=== PATIENT | female | born 1995 | race Caucasian/White ===

== ENCOUNTER 2018-01-08 19:12 | Emergency (ER) | payer BC ==
[2018-01-08 19:54] VITALS: BP 124/63
--- NOTE | 2018-01-09 09:55 | UC ---
- Progress Note Progress Note: Pt LWBS no imaging ordered Discharge - Sign-Out/Discharge Documenting (check all that apply): Post-Discharge Follow Up All imaging exams completed and their final reports reviewed: No Studies - Discharge Plan Disposition: LEFT WITHOUT BEING SEEN Referrals: No Primary Care Phys,NOPCP [Primary Care Provider] - - Billing Disposition and Condition Disposition: Left Without Being Seen
== END 2018-01-08 20:06 | disposition left against medical advice (07) ==
LOC: UCEAST 19:12
DX: Z53.21 Procedure and treatment not carried out due to patient leaving prior to being seen by health care provider (principal)